=== PATIENT | male | born 1960 | race African-American/Black ===

== ENCOUNTER 2019-06-10 11:52 | Inpatient (IN) | payer OTHER ==
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
[2019-06-10] MEDS ORDERED: MENTHOL/PHENOL 1 EACH UD MM PRN (14:15)
[2019-06-10] MEDS ORDERED: chlordiazePOXIDE HCL 25 MG CAPSULE PO PRN (14:15)
[2019-06-10] MEDS ORDERED: ACETAMINOPHEN 325 MG TABLET (FP) PO PRN ×2 (14:15)
[2019-06-10] MEDS ORDERED: MAGNESIUM CITRATE 300 ML BOTTLE PO PRN (14:15)
[2019-06-10] MEDS ORDERED: hydrOXYzine PAMOATE 25 MG CAPSULE (FP) PO PRN (14:15)
[2019-06-10] MEDS ORDERED: MAGNESIUM HYDROX 2400MG/30ML ORAL SUSPENSION 30 ML CUP PO PRN (14:15)
[2019-06-10] MEDS ORDERED: METHOCARBAMOL 500 MG TABLET PO PRN (14:15)
[2019-06-10] MEDS ORDERED: MAG HYDROX/AL HYDROX/SIMETH 30 ML UNIT-DOSE CUP PO PRN (14:15)
[2019-06-10] MEDS ORDERED: BISMUTH SUBSALICYLATE 524 MG/30 ML UD PO PRN (14:15)
[2019-06-10 15:46] VITALS: BMI 20.7
[2019-06-10 17:28] LABS: HEMATOCRIT 40.7 % (35.4-49); HEMOGLOBIN 13.8 GM/dL (11.7-16.9); MCH 34.2 pg (25.7-33.7); MCHC 33.8 g/dl (32.0-35.9); MEAN PLT VOLUME 7.9 fl (7.5-11.1); PLATELET COUNT 358 K/MM3 (134-434); RBC 4.03 M/mm3 (4.00-5.60); RDW 13.8 % (11.9-15.9); WHITE BLOOD COUNT 7.5 K/mm3 (4.0-10.0)
[2019-06-10 17:46] LABS: ALBUMIN 3.6 g/dl (3.4-5.0); BILIRUBIN,TOTAL 0.5 mg/dL (0.2-1); BLOOD UREA NITROGEN 14.2 mg/dL (7-18); CALCIUM 8.7 mg/dL (8.5-10.1); CREATININE 0.9 mg/dL (0.55-1.3); POTASSIUM 4.1 mmol/L (3.5-5.1)
[2019-06-10] MEDS: NICOTINE 21 MG/24 HOURS TOPICAL PATCH TD SCH (17:53)
[2019-06-10] MEDS: chlordiazePOXIDE HCL 25 MG CAPSULE PO SCH ×3 (17:53→22:22)
[2019-06-10] MEDS: LATANOPROST 0.005% OPHTH SOLN 2.5ML BOTTLE OS SCH (22:21)
[2019-06-10] MEDS: THIAMINE HCL 100 MG TABLET (FP) PO SCH (22:22)
[2019-06-10] MEDS: MELATONIN 5 MG TABLETS PO PRN (22:23)
[2019-06-11] MEDS: chlordiazePOXIDE HCL 25 MG CAPSULE PO SCH ×4 (05:25→22:10)
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
[2019-06-11] MEDS: PRENATAL VITAMINS W/ FOLIC ACID TABLET (FP) PO SCH (10:55)
[2019-06-11] MEDS: NICOTINE 21 MG/24 HOURS TOPICAL PATCH TD SCH (10:55)
[2019-06-11] MEDS: PATIENT'S OWN MEDICATION (NON-FORMULARY) (Dorzolamide/Timolol/Pf [Cosopt Pf Eye Drops] 1 E OS SCH (10:56)
[2019-06-11] MEDS: BRIMONIDINE TARTRATE 0.2% OPHTHALMIC 5 ML BOTTLE OS SCH (10:56)
[2019-06-11] MEDS: IBUPROFEN 400 MG TABLET (FP) PO PRN (11:00)
--- NOTE | 2019-06-11 11:02 | PN ---
S CIWA - CIWA Score Nausea/Vomitin Muscle Tremors: 2 Anxiety: 2 Agitation: 2 Paroxysmal Sweats: No Perspiration Orientation: 0-Oriented Tacttile Disturbances: 1-Very Mild Itch/Numbness Auditory Disturbances: 0-None Visual Disturbances: 0-None Headache: 2-Mild CIWA-Ar Total Score: 11 S Progress Note (SOAP) Subjective: alert,irritable,anxious,interrupted sleep,tremor Objective: 06/11/19 11:01 Vital Signs Temperature 98.2 F 06/11/19 09:17 Pulse Rate 87 06/11/19 09:17 Respiratory Rate 18 06/11/19 09:17 Blood Pressure 107/57 L 06/11/19 09:17 O2 Sat by Pulse Oximetry (%) 06/11/19 11:01 06/10/19 06/10/19 14:30 14:30 WBC 7.5 RBC 4.03 Hgb 13.8 Hct 40.7 MCV 101.0 H MCHC 33.8 RDW 13.8 Plt Count 358 Sodium 139 Potassium 4.1 Chloride 106 Carbon Dioxide 28 Anion Gap 5 L BUN 14.2 Creatinine 0.9 06/11/19 11:01 other labs pending Assessment: 06/11/19 11:01 withdrawal symptom Plan: continue detox librium regimen
[2019-06-11] MEDS: TOLNAFTATE 1% CREAM 15 GM TUBE TP SCH ×2 (13:56→22:13)
[2019-06-11] MEDS: AMMONIUM LACTATE 12% LOTION 225 GM BOTTLE TP SCH ×2 (13:56→22:10)
[2019-06-11] MEDS: QUEtiapine FUMARATE 200 MG TABLET PO SCH (22:10)
[2019-06-11] MEDS: THIAMINE HCL 100 MG TABLET (FP) PO SCH (22:10)
[2019-06-11] MEDS: LATANOPROST 0.005% OPHTH SOLN 2.5ML BOTTLE OS SCH (22:13)
[2019-06-12] MEDS: chlordiazePOXIDE HCL 25 MG CAPSULE PO SCH ×4 (07:34→22:03)
[2019-06-12] MEDS: PRENATAL VITAMINS W/ FOLIC ACID TABLET (FP) PO SCH (10:04)
[2019-06-12] MEDS: NICOTINE 21 MG/24 HOURS TOPICAL PATCH TD SCH (10:04)
[2019-06-12] MEDS: TOLNAFTATE 1% CREAM 15 GM TUBE TP SCH ×2 (10:05→21:42)
[2019-06-12] MEDS: PATIENT'S OWN MEDICATION (NON-FORMULARY) (Dorzolamide/Timolol/Pf [Cosopt Pf Eye Drops] 1 E OS SCH (10:08)
[2019-06-12] MEDS: BRIMONIDINE TARTRATE 0.2% OPHTHALMIC 5 ML BOTTLE OS SCH (10:09)
[2019-06-12] MEDS: AMMONIUM LACTATE 12% LOTION 225 GM BOTTLE TP SCH ×2 (10:10→21:42)
--- NOTE | 2019-06-12 10:18 | PN ---
[facility] CIWA - CIWA Score Nausea/Vomitin-Mild Nausea/No Vomiting Muscle Tremors: 2 Anxiety: 2 Agitation: 2 Paroxysmal Sweats: No Perspiration Orientation: 0-Oriented Tacttile Disturbances: 1-Very Mild Itch/Numbness Auditory Disturbances: 0-None Visual Disturbances: 0-None Headache: 1-Very Mild CIWA-Ar Total Score: 9 S Progress Note (SOAP) Subjective: alert,irritable,anxious,interrupted sleep,tremor,pain in the body Objective: 06/12/19 10:17 Vital Signs Temperature 97.9 F 06/12/19 08:50 Pulse Rate 88 06/12/19 08:50 Respiratory Rate 18 06/12/19 08:50 Blood Pressure 97/65 06/12/19 08:50 O2 Sat by Pulse Oximetry (%) Laboratory Last Values WBC 7.5 K/mm3 (4.0-10.0) 06/10/19 14:30 RBC 4.03 M/mm3 (4.00-5.60) 06/10/19 14:30 Hgb 13.8 GM/dL (11.7-16.9) 06/10/19 14:30 Hct 40.7 % (35.4-49) 06/10/19 14:30 MCV 101.0 fl (80-96) H 06/10/19 14:30 MCH 34.2 pg (25.7-33.7) H 06/10/19 14:30 MCHC 33.8 g/dl (32.0-35.9) 06/10/19 14:30 RDW 13.8 % (11.9-15.9) 06/10/19 14:30 Plt Count 358 K/MM3 (134-434) 06/10/19 14:30 MPV 7.9 fl (7.5-11.1) 06/10/19 14:30 Sodium 139 mmol/L (136-145) 06/10/19 14:30 Potassium 4.1 mmol/L (3.5-5.1) 06/10/19 14:30 Chloride 106 mmol/L (98-107) 06/10/19 14:30 Carbon Dioxide 28 mmol/L (21-32) 06/10/19 14:30 Anion Gap 5 MMOL/L (8-16) L 06/10/19 14:30 BUN 14.2 mg/dL (7-18) 06/10/19 14:30 Creatinine 0.9 mg/dL (0.55-1.3) 06/10/19 14:30 Est GFR (CKD-EPI)AfAm 109.50 06/10/19 14:30 Est GFR (CKD-EPI)NonAf 94.48 06/10/19 14:30 Random Glucose 91 mg/dL (74-106) 06/10/19 14:30 Calcium 8.7 mg/dL (8.5-10.1) 06/10/19 14:30 Total Bilirubin 0.5 mg/dL (0.2-1) 06/10/19 14:30 AST 26 U/L (15-37) 06/10/19 14:30 ALT 39 U/L (13-61) 06/10/19 14:30 Alkaline Phosphatase 137 U/L (45-117) H 06/10/19 14:30 Total Protein 7.0 g/dl (6.4-8.2) 06/10/19 14:30 Albumin 3.6 g/dl (3.4-5.0) 06/10/19 14:30 RPR Titer Nonreactive (NONREACTIVE) 06/10/19 14:30 HIV 1&2 Ag/Ab, 4th Gen Non reactive (Non Reactive) 06/10/19 14:00 HIV 1&2 Antibody Screen Cancelled 06/11/19 07:45 HIV P24 Antigen Cancelled 06/11/19 07:45 Assessment: 06/12/19 10:18 withdrawal symptom Plan: continue detox librium regimen
[2019-06-12] MEDS: THIAMINE HCL 100 MG TABLET (FP) PO SCH (21:40)
[2019-06-12] MEDS: QUEtiapine FUMARATE 200 MG TABLET PO SCH (21:40)
[2019-06-12] MEDS: LATANOPROST 0.005% OPHTH SOLN 2.5ML BOTTLE OS SCH (21:42)
[2019-06-12] MEDS: IBUPROFEN 400 MG TABLET (FP) PO PRN (22:01)
[2019-06-13] MEDS ORDERED: chlordiazePOXIDE HCL 10 MG CAPSULE PO PRN
[2019-06-13] MEDS: chlordiazePOXIDE HCL 10 MG CAPSULE PO SCH ×4 (05:51→22:02)
[2019-06-13] MEDS: PRENATAL VITAMINS W/ FOLIC ACID TABLET (FP) PO SCH (11:13)
[2019-06-13] MEDS: NICOTINE 21 MG/24 HOURS TOPICAL PATCH TD SCH (11:13)
[2019-06-13] MEDS: AMMONIUM LACTATE 12% LOTION 225 GM BOTTLE TP SCH ×2 (11:14→22:00)
[2019-06-13] MEDS: TOLNAFTATE 1% CREAM 15 GM TUBE TP SCH ×2 (11:14→21:59)
[2019-06-13] MEDS: PATIENT'S OWN MEDICATION (NON-FORMULARY) (Dorzolamide/Timolol/Pf [Cosopt Pf Eye Drops] 1 E OS SCH (11:16)
[2019-06-13] MEDS: BRIMONIDINE TARTRATE 0.2% OPHTHALMIC 5 ML BOTTLE OS SCH (11:17)
--- NOTE | 2019-06-13 14:55 | PN ---
S CIWA - CIWA Score Nausea/Vomitin-Mild Nausea/No Vomiting Muscle Tremors: 2 Anxiety: 2 Agitation: 2 Paroxysmal Sweats: No Perspiration Orientation: 0-Oriented Tacttile Disturbances: 1-Very Mild Itch/Numbness Auditory Disturbances: 0-None Visual Disturbances: 1-Very Mild Sensitivity Headache: 1-Very Mild CIWA-Ar Total Score: 10 BHS Progress Note (SOAP) Subjective: alert,irritable,interrupted sleep,pain in the body Objective: 06/13/19 14:54 Vital Signs Temperature 97.2 F L 06/13/19 13:30 Pulse Rate 97 H 06/13/19 13:30 Respiratory Rate 16 06/13/19 13:30 Blood Pressure 110/72 06/13/19 13:30 O2 Sat by Pulse Oximetry (%) Assessment: 06/13/19 14:54 withdrawal symptom Plan: continue detox librium regimen,ensure plus 120 mls po bid
[2019-06-13] MEDS: IBUPROFEN 400 MG TABLET (FP) PO PRN (17:44)
[2019-06-13] MEDS: LATANOPROST 0.005% OPHTH SOLN 2.5ML BOTTLE OS SCH (21:59)
[2019-06-13] MEDS: THIAMINE HCL 100 MG TABLET (FP) PO SCH (21:59)
[2019-06-13] MEDS: MELATONIN 5 MG TABLETS PO PRN (22:00)
[2019-06-13] MEDS: QUEtiapine FUMARATE 200 MG TABLET PO SCH (22:00)
[2019-06-14] MEDS: chlordiazePOXIDE HCL 10 MG CAPSULE PO SCH ×2 (05:45→17:33)
[2019-06-14] MEDS: TOLNAFTATE 1% CREAM 15 GM TUBE TP SCH ×2 (11:05→22:03)
[2019-06-14] MEDS: NICOTINE 21 MG/24 HOURS TOPICAL PATCH TD SCH (11:05)
[2019-06-14] MEDS: PRENATAL VITAMINS W/ FOLIC ACID TABLET (FP) PO SCH (11:06)
[2019-06-14] MEDS: AMMONIUM LACTATE 12% LOTION 225 GM BOTTLE TP SCH ×2 (11:06→22:03)
[2019-06-14] MEDS: PATIENT'S OWN MEDICATION (NON-FORMULARY) (Dorzolamide/Timolol/Pf [Cosopt Pf Eye Drops] 1 E OS SCH (11:06)
[2019-06-14] MEDS: BRIMONIDINE TARTRATE 0.2% OPHTHALMIC 5 ML BOTTLE OS SCH (11:06)
--- NOTE | 2019-06-14 12:37 | DS ---
[facility] Detox Discharge Summary Admission Date: 06/10/19 Discharge Date: 06/14/19 - History Present History: Alcohol Dependence Pertinent Past History: Pt completed alcohol detox protocol. Pt to go to [facility] rehab today. Without complaints. Vital Signs - 24 hr 06/13/19 06/13/19 06/14/19 13:30 20:32 00:32 Temperature 97.2 F L 97.0 F L Pulse Rate 97 H 88 Respiratory 16 18 16 Rate Blood Pressure 110/72 125/72 06/14/19 06/14/19 06/14/19 03:49 07:22 08:57 Temperature 97.5 F L 97.2 F L Pulse Rate 84 91 H Respiratory 18 18 18 Rate Blood Pressure 96/61 126/86 Laboratory Tests 06/10/19 06/10/19 06/10/19 14:00 14:30 14:30 WBC 7.5 RBC 4.03 Hgb 13.8 Hct 40.7 MCV 101.0 H MCH 34.2 H MCHC 33.8 RDW 13.8 Plt Count 358 MPV 7.9 Sodium 139 Potassium 4.1 Chloride 106 Carbon Dioxide 28 Anion Gap 5 L BUN 14.2 Creatinine 0.9 Est GFR (CKD-EPI)AfAm 109.50 Est GFR (CKD-EPI)NonAf 94.48 Random Glucose 91 Calcium 8.7 Total Bilirubin 0.5 AST 26 ALT 39 Alkaline Phosphatase 137 H Total Protein 7.0 Albumin 3.6 RPR Titer HIV 1&2 Ag/Ab, 4th Gen Non reactive HIV 1&2 Antibody Screen HIV P24 Antigen 06/10/19 06/11/19 14:30 07:45 WBC RBC Hgb Hct MCV MCH MCHC RDW Plt Count MPV Sodium Potassium Chloride Carbon Dioxide Anion Gap BUN Creatinine Est GFR (CKD-EPI)AfAm Est GFR (CKD-EPI)NonAf Random Glucose Calcium Total Bilirubin AST ALT Alkaline Phosphatase Total Protein Albumin RPR Titer Nonreactive HIV 1&2 Ag/Ab, 4th Gen HIV 1&2 Antibody Screen Cancelled HIV P24 Antigen Cancelled - Physical Exam Results Vital Signs: Vital Signs Temperature 97.2 F L 06/14/19 08:57 Pulse Rate 91 H 06/14/19 08:57 Respiratory Rate 18 06/14/19 08:57 Blood Pressure 126/86 06/14/19 08:57 O2 Sat by Pulse Oximetry (%) - Treatment Hospital Course: Detox Protocol Followed, Detoxed Safely - Medication Discharge Medications: Ambulatory Orders Brimonidine Tartrate [Alphagan 0.2% -] 1 drop OS DAILY 06/10/19 Dorzolamide/Timolol/Pf [Cosopt Pf Eye Drops] 1 each OS DAILY 06/10/19 Ibuprofen [Motrin -] 400 mg PO BID PRN 06/10/19 Latanoprost 0.005% Eye Drops [Xalatan 0.005% Eye Drops -] 1 drop OS HS 06/10/19 Quetiapine Fumarate [Seroquel -] 100 mg PO DAILY 06/10/19 Quetiapine Fumarate [Seroquel -] 200 mg PO HS 06/10/19 - AMA Did Patient Leave Against Medical Advice: No
[2019-06-14] MEDS: IBUPROFEN 400 MG TABLET (FP) PO PRN (18:12)
[2019-06-14] MEDS: QUEtiapine FUMARATE 200 MG TABLET PO SCH (22:03)
[2019-06-14] MEDS: THIAMINE HCL 100 MG TABLET (FP) PO SCH (22:04)
[2019-06-14] MEDS: LATANOPROST 0.005% OPHTH SOLN 2.5ML BOTTLE OS SCH (22:04)
[2019-06-15] MEDS ORDERED: chlordiazePOXIDE HCL 10 MG CAPSULE PO ONE (05:00)
[2019-06-15] MEDS: BRIMONIDINE TARTRATE 0.2% OPHTHALMIC 5 ML BOTTLE OS SCH (11:08)
[2019-06-15] MEDS: PATIENT'S OWN MEDICATION (NON-FORMULARY) (Dorzolamide/Timolol/Pf [Cosopt Pf Eye Drops] 1 E OS SCH (11:08)
[2019-06-15] MEDS: PRENATAL VITAMINS W/ FOLIC ACID TABLET (FP) PO SCH (11:09)
[2019-06-15] MEDS: TOLNAFTATE 1% CREAM 15 GM TUBE TP SCH ×2 (11:09→23:55)
[2019-06-15] MEDS: AMMONIUM LACTATE 12% LOTION 225 GM BOTTLE TP SCH ×2 (11:09→23:56)
[2019-06-15] MEDS: NICOTINE 21 MG/24 HOURS TOPICAL PATCH TD SCH (11:09)
--- NOTE | 2019-06-15 11:38 | DS ---
[facility] Detox Discharge Summary Admission Date: 06/10/19 Discharge Date: 06/15/19 - History Present History: Alcohol Dependence Pertinent Past History: Pt to be discharged today to rehab here. Completed detox for AUD. Pt did not have any problems during hospitalization Vital Signs - 24 hr 06/14/19 06/14/19 06/14/19 13:15 16:46 20:35 Temperature 98.4 F 96.8 F L 98.2 F Pulse Rate 102 H 95 H 91 H Respiratory 16 17 17 Rate Blood Pressure 123/76 122/68 127/74 06/15/19 06/15/19 06/15/19 00:42 04:30 05:42 Temperature 97.7 F Pulse Rate 81 Respiratory 18 18 17 Rate Blood Pressure 120/68 06/15/19 09:44 Temperature Pulse Rate Respiratory 15 Rate Blood Pressure Laboratory Tests 06/10/19 06/10/19 06/10/19 14:00 14:30 14:30 WBC 7.5 RBC 4.03 Hgb 13.8 Hct 40.7 MCV 101.0 H MCH 34.2 H MCHC 33.8 RDW 13.8 Plt Count 358 MPV 7.9 Sodium 139 Potassium 4.1 Chloride 106 Carbon Dioxide 28 Anion Gap 5 L BUN 14.2 Creatinine 0.9 Est GFR (CKD-EPI)AfAm 109.50 Est GFR (CKD-EPI)NonAf 94.48 Random Glucose 91 Calcium 8.7 Total Bilirubin 0.5 AST 26 ALT 39 Alkaline Phosphatase 137 H Total Protein 7.0 Albumin 3.6 RPR Titer HIV 1&2 Ag/Ab, 4th Gen Non reactive HIV 1&2 Antibody Screen HIV P24 Antigen 06/10/19 06/11/19 14:30 07:45 WBC RBC Hgb Hct MCV MCH MCHC RDW Plt Count MPV Sodium Potassium Chloride Carbon Dioxide Anion Gap BUN Creatinine Est GFR (CKD-EPI)AfAm Est GFR (CKD-EPI)NonAf Random Glucose Calcium Total Bilirubin AST ALT Alkaline Phosphatase Total Protein Albumin RPR Titer Nonreactive HIV 1&2 Ag/Ab, 4th Gen HIV 1&2 Antibody Screen Cancelled HIV P24 Antigen Cancelled - Physical Exam Results Vital Signs: Vital Signs Temperature 97.7 F 06/15/19 05:42 Pulse Rate 81 06/15/19 05:42 Respiratory Rate 15 06/15/19 09:44 Blood Pressure 120/68 06/15/19 05:42 O2 Sat by Pulse Oximetry (%) - Treatment Hospital Course: Detox Protocol Followed, Detoxed Safely, Responded well, Discharged Condition Good, Rehab Referral Accepted - Medication Discharge Medications: Ambulatory Orders Brimonidine Tartrate [Alphagan 0.2% -] 1 drop OS DAILY 06/10/19 Dorzolamide/Timolol/Pf [Cosopt Pf Eye Drops] 1 each OS DAILY 06/10/19 Ibuprofen [Motrin -] 400 mg PO BID PRN 06/10/19 Latanoprost 0.005% Eye Drops [Xalatan 0.005% Eye Drops -] 1 drop OS HS 06/10/19 Quetiapine Fumarate [Seroquel -] 100 mg PO DAILY 06/10/19 Quetiapine Fumarate [Seroquel -] 200 mg PO HS 06/10/19
[2019-06-15] MEDS: QUEtiapine FUMARATE 200 MG TABLET PO SCH (23:54)
[2019-06-15] MEDS: THIAMINE HCL 100 MG TABLET (FP) PO SCH (23:55)
[2019-06-15] MEDS: LATANOPROST 0.005% OPHTH SOLN 2.5ML BOTTLE OS SCH (23:55)
[2019-06-15] MEDS: IBUPROFEN 400 MG TABLET (FP) PO PRN (23:59)
[2019-06-16] MEDS: AMMONIUM LACTATE 12% LOTION 225 GM BOTTLE TP SCH (11:25)
[2019-06-16] MEDS: BRIMONIDINE TARTRATE 0.2% OPHTHALMIC 5 ML BOTTLE OS SCH (11:25)
[2019-06-16] MEDS: TOLNAFTATE 1% CREAM 15 GM TUBE TP SCH (11:25)
[2019-06-16] MEDS: PATIENT'S OWN MEDICATION (NON-FORMULARY) (Dorzolamide/Timolol/Pf [Cosopt Pf Eye Drops] 1 E OS SCH (11:25)
[2019-06-16] MEDS: PRENATAL VITAMINS W/ FOLIC ACID TABLET (FP) PO SCH (11:25)
[2019-06-16] MEDS: NICOTINE 21 MG/24 HOURS TOPICAL PATCH TD SCH (11:25)
--- NOTE | 2019-06-16 12:36 | PN ---
S Progress Note Note: Patient completed detox. Awaiting to be transferred to [address] He denies medical complaints, SI/HI. PE alert and oriented x 3 skin warm and dry +perrla, eoms intact bl ext full rom, amb ad becky no tremors A/P: Alcohol dependence For transfer to Rehab
[2019-06-16 14:45] VITALS: BP 120/77; PULSE 105; TEMP 99
== END 2019-06-16 15:53 | disposition other institution (70) | DRG 774 ==
LOC: YASAS 11:52 → Y6N 16:13
PROVIDERS: ADMIT Allergy & Immunology; ATTEND Allergy & Immunology
PROC: HZ2ZZZZ Detoxification Services for Substance Abuse Treatment (ICD-10-PCS; principal; 2019-06-10)
DX: F10.230 Alcohol dependence with withdrawal, uncomplicated (principal); F14.20 Cocaine dependence, uncomplicated; F17.210 Nicotine dependence, cigarettes, uncomplicated; F12.20 Cannabis dependence, uncomplicated; F25.9 Schizoaffective disorder, unspecified; F19.282 Other psychoactive substance dependence with psychoactive substance-induced sleep disorder; F19.24 Other psychoactive substance dependence with psychoactive substance-induced mood disorder; G43.909 Migraine, unspecified, not intractable, without status migrainosus; H40.9 Unspecified glaucoma
CPT/HCPCS: 36415; 80053; 85027; 86593; 87389

== ENCOUNTER 2019-06-16 16:02 | Inpatient (IN) | payer OTHER ==
--- NOTE | 2019-06-16 17:40 | HP ---
[facility] Rehab Assess/Revision - Admission History Admitted to Rehab from: [facility] Date of Admission to Rehab: 06/16/19 - Findings Detox History & Physical reviewed: Yes Concur with findings: Yes Comments/Additional Findings: pt with glaucoma Inpatient Rehab Admission - Rehab Decision to Admit Inpatient rehab admission?: Yes - Initial Determination Are CD services needed?: Yes Free of communicable disease: Yes Not in need of hospitalization: Yes - Rehab Admission Criteria Previous failed treatment: Yes Poor recovery environment: Yes Comorbidities: Yes Lacks judgement: Yes Patient is meeting Inpatient Rehab admission criteria:: Yes (completed detox)
[2019-06-16] MEDS ORDERED: LOPERAMIDE HCL 2 MG CAPSULE PO PRN (17:45)
[2019-06-16] MEDS ORDERED: MAGNESIUM HYDROX 2400MG/30ML ORAL SUSPENSION 30 ML CUP PO PRN (17:45)
[2019-06-16] MEDS ORDERED: guaiFENesin 200 MG/10 ML 10 ML UNIT-DOSE CUPS PO PRN (17:45)
[2019-06-16] MEDS ORDERED: IBUPROFEN 400 MG TABLET (FP) PO PRN (17:45)
[2019-06-16] MEDS ORDERED: MAG HYDROX/AL HYDROX/SIMETH 30 ML UNIT-DOSE CUP PO PRN (17:45)
[2019-06-16] MEDS ORDERED: MENTHOL/PHENOL 1 EACH UD MM PRN (17:45)
[2019-06-16] MEDS ORDERED: hydrOXYzine PAMOATE 25 MG CAPSULE (FP) PO PRN (17:45)
[2019-06-16] MEDS ORDERED: MAGNESIUM CITRATE 300 ML BOTTLE PO PRN (17:45)
[2019-06-16] MEDS ORDERED: P-EPHED 60MG/TRIPROLIDI 2.5MG TABLET PO PRN (17:45)
[2019-06-16] MEDS ORDERED: ACETAMINOPHEN 325 MG TABLET (FP) PO PRN (17:45)
[2019-06-16] MEDS: LATANOPROST 0.005% OPHTH SOLN 2.5ML BOTTLE OS SCH (21:44)
[2019-06-16] MEDS: THIAMINE HCL 100 MG TABLET (FP) PO SCH (21:45)
[2019-06-16] MEDS: PATIENT'S OWN MEDICATION (NON-FORMULARY) (Dorzolamide/Timolol/Pf [Cosopt Pf Eye Drops] 1 E OS SCH (21:45)
[2019-06-16] MEDS ORDERED: MELATONIN 5 MG TABLETS PO PRN (22:00)
[2019-06-16] MEDS ORDERED: TIMOLOL 0.5% OPHTHALMIC SOL 5 ML BOTTLE OS SCH (22:00)
[2019-06-17] MEDS: PRENATAL VITAMINS W/ FOLIC ACID TABLET (FP) PO SCH (09:54)
[2019-06-17] MEDS: PATIENT'S OWN MEDICATION (NON-FORMULARY) (Dorzolamide/Timolol/Pf [Cosopt Pf Eye Drops] 1 E OS SCH ×2 (09:55→22:02)
[2019-06-17] MEDS ORDERED: QUEtiapine FUMARATE 200 MG TABLET PO SCH (10:00)
--- NOTE | 2019-06-17 11:09 | PN ---
[facility] Progress Note Note: Pt is a 59 y/o male with a hx of LEI-alcohol,cocaine,marijuana(sporadic) admitted to rehab after completing detox on . PMHx:Glaucoma(on Xalatan, Cosopt and Alphagan eye drops-poor historian and unable to give information on dosing frequency, was taking in detox),marijuana. Psy Hx:Schizoaffective Disorder,MDD. Pt reports he has Dr. Elaine Sommer at [facility] on [address] Vital Signs - 24 hr 06/16/19 06/17/19 06/17/19 16:50 00:35 06:45 Temperature 98.6 F 97.4 F L Pulse Rate 106 H 80 Respiratory 18 18 18 Rate Blood Pressure 105/68 125/76 Alert o x 3,denies s/h/i nad oob ambulating with steady gait. extremities/skin:no edema;dry scaly,feet/hands; skin intact. A/P s/p detox LEI Tinea Pedis Dry skin Maintain safety Tinactin cream as directed Ammonium Lactate lotion apply daily to affected areas. increase po fluids follow up with counselor for discharge planning referral after rehab.
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
[2019-06-17] MEDS: AMMONIUM LACTATE 12% LOTION 225 GM BOTTLE TP SCH (15:24)
[2019-06-17] MEDS: BRIMONIDINE TARTRATE 0.2% OPHTHALMIC 5 ML BOTTLE OS SCH ×2 (15:24→21:20)
[2019-06-17] MEDS: QUEtiapine FUMARATE 100 MG TABLET (FP) PO SCH (15:25)
[2019-06-17] MEDS: THIAMINE HCL 100 MG TABLET (FP) PO SCH (21:21)
[2019-06-17] MEDS: QUEtiapine FUMARATE 200 MG TABLET PO SCH (21:21)
[2019-06-17] MEDS: LATANOPROST 0.005% OPHTH SOLN 2.5ML BOTTLE OS SCH (21:23)
[2019-06-17] MEDS: TOLNAFTATE 1% CREAM 15 GM TUBE TP SCH (22:02)
[2019-06-18] MEDS: BRIMONIDINE TARTRATE 0.2% OPHTHALMIC 5 ML BOTTLE OS SCH ×3 (06:52→21:17)
[2019-06-18 07:16] VITALS: TEMP 97.7
[2019-06-18] MEDS: AMMONIUM LACTATE 12% LOTION 225 GM BOTTLE TP SCH (10:17)
[2019-06-18] MEDS: PATIENT'S OWN MEDICATION (NON-FORMULARY) (Dorzolamide/Timolol/Pf [Cosopt Pf Eye Drops] 1 E OS SCH ×2 (10:17→21:51)
[2019-06-18] MEDS: PRENATAL VITAMINS W/ FOLIC ACID TABLET (FP) PO SCH (10:17)
[2019-06-18] MEDS: QUEtiapine FUMARATE 100 MG TABLET (FP) PO SCH (10:18)
[2019-06-18] MEDS: TOLNAFTATE 1% CREAM 15 GM TUBE TP SCH ×2 (10:18→21:51)
[2019-06-18] MEDS: THIAMINE HCL 100 MG TABLET (FP) PO SCH (21:16)
[2019-06-18] MEDS: QUEtiapine FUMARATE 200 MG TABLET PO SCH (21:16)
[2019-06-18] MEDS: LATANOPROST 0.005% OPHTH SOLN 2.5ML BOTTLE OS SCH (21:18)
[2019-06-19] MEDS: BRIMONIDINE TARTRATE 0.2% OPHTHALMIC 5 ML BOTTLE OS SCH ×3 (06:52→21:15)
[2019-06-19 06:55] VITALS: BP 104/63; PULSE 87
[2019-06-19] MEDS: AMMONIUM LACTATE 12% LOTION 225 GM BOTTLE TP SCH (10:20)
[2019-06-19] MEDS: PATIENT'S OWN MEDICATION (NON-FORMULARY) (Dorzolamide/Timolol/Pf [Cosopt Pf Eye Drops] 1 E OS SCH ×2 (10:21→21:15)
[2019-06-19] MEDS: QUEtiapine FUMARATE 100 MG TABLET (FP) PO SCH (10:22)
[2019-06-19] MEDS: TOLNAFTATE 1% CREAM 15 GM TUBE TP SCH ×2 (10:22→21:16)
[2019-06-19] MEDS: PRENATAL VITAMINS W/ FOLIC ACID TABLET (FP) PO SCH (10:22)
[2019-06-19] MEDS: LATANOPROST 0.005% OPHTH SOLN 2.5ML BOTTLE OS SCH (21:15)
[2019-06-19] MEDS: QUEtiapine FUMARATE 200 MG TABLET PO SCH (21:16)
[2019-06-19] MEDS: THIAMINE HCL 100 MG TABLET (FP) PO SCH (21:16)
[2019-06-20] MEDS: BRIMONIDINE TARTRATE 0.2% OPHTHALMIC 5 ML BOTTLE OS SCH ×2 (07:59→14:22)
[2019-06-20] MEDS: QUEtiapine FUMARATE 100 MG TABLET (FP) PO SCH (10:09)
[2019-06-20] MEDS: TOLNAFTATE 1% CREAM 15 GM TUBE TP SCH (10:10)
[2019-06-20] MEDS: PRENATAL VITAMINS W/ FOLIC ACID TABLET (FP) PO SCH (10:10)
[2019-06-20] MEDS: AMMONIUM LACTATE 12% LOTION 225 GM BOTTLE TP SCH (10:10)
[2019-06-20] MEDS: PATIENT'S OWN MEDICATION (NON-FORMULARY) (Dorzolamide/Timolol/Pf [Cosopt Pf Eye Drops] 1 E OS SCH (10:13)
--- NOTE | 2019-06-20 15:34 | DS ---
[facility] Rehab Discharge Summary - [facility] Rehab Discharge Summary Admission Date: 06/16/19 Discharge Date: 06/20/19 - History Present History: Alcohol dependence, Cannabis dependence, Cocaine dependence Additional Comments: Pt is a 59 y/o male with a hx of LEI admitted to rehab after completing detox treatment but declined to continue with rehab("I feel locked in here") and wants to follow up with his outpatient program -[facility] on [address] [place] [address]. Pt reports he has own primary care provider, Dr. Elaine Sommer at [place], [place]. Pertinent Past History: Glaucoma Migraines Schizo-affective d/o - Discharge Physical Exam Vital Signs: Vital Signs Temperature 97.7 F 06/19/19 06:53 Pulse Rate 87 06/19/19 06:53 Respiratory Rate 16 06/20/19 03:30 Blood Pressure 104/63 06/19/19 06:53 O2 Sat by Pulse Oximetry (%) Alert o x 3,denies s/h/i nad oob ambulating with steady gait cardiac:s1 s2,rrr lungs:cta,manish. abdomen:+bs,soft,nt,nd extremities/skin:no edema;skin intact. Pertinent Admission Physical Exam Findings: Stable and unchanged since admission to rehab - Treatment Discharge Condition: Discharge condition good Hospital Course: safety maintained CD aftercare referral accepted to [facility] program - Medication Discharge Medications: Ambulatory Orders Brimonidine Tartrate [Alphagan 0.2% -] 1 drop OS TID 06/10/19 Dorzolamide/Timolol/Pf [Cosopt Pf Eye Drops] 1 each OS BID 06/10/19 Ibuprofen [Motrin -] 400 mg PO BID PRN 06/10/19 Latanoprost 0.005% Eye Drops [Xalatan 0.005% Eye Drops -] 1 drop OS HS 06/10/19 Quetiapine Fumarate [Seroquel -] 100 mg PO DAILY 06/10/19 Quetiapine Fumarate [Seroquel -] 200 mg PO HS 06/10/19 - Medication-Assisted Treatment (MAT) Medication-Assisted Treatment (MAT): Yes - Discharge Instructions Diet, activity, other medical instructions: Diet:Regular Activity: oob ad becky Other medical instructions:follow up with CD aftercare as scheduled. follow up with primary care provider Dr. Elaine Sommer at [place], [place] - Diagnosis (1) Alcohol dependence Current Visit: Yes Status: Chronic Qualifiers: Substance use status: uncomplicated Qualified Code(s): F10.20 - Alcohol dependence, uncomplicated (2) Cocaine dependence Current Visit: Yes Status: Chronic Qualifiers: Substance use status: uncomplicated Qualified Code(s): F14.20 - Cocaine dependence, uncomplicated (3) Glaucoma Current Visit: Yes Status: Chronic Qualifiers: Laterality: bilateral (4) Migraine Current Visit: Yes Status: Chronic (5) Nicotine dependence Current Visit: Yes Status: Chronic Qualifiers: Nicotine product type: cigarettes Substance use status: uncomplicated Qualified Code(s): F17.210 - Nicotine dependence, cigarettes, uncomplicated - Follow-up Referral Minutes to complete discharge: 20 - AMA Did Patient Leave Against Medical Advice: No Additional Comments: Pt has own eye drops and will follow up with his primary care provider upon discharge.
== END 2019-06-20 04:35 | disposition home or self-care (01) | DRG 772 ==
LOC: YASAS 16:02 → Y5N 16:03
PROVIDERS: ADMIT Allergy & Immunology; ATTEND Allergy & Immunology
PROC: HZ42ZZZ Group Counseling for Substance Abuse Treatment, Cognitive-Behavioral (ICD-10-PCS; principal; 2019-06-16)
DX: F10.20 Alcohol dependence, uncomplicated (principal); F14.20 Cocaine dependence, uncomplicated; F12.20 Cannabis dependence, uncomplicated; F33.2 Major depressive disorder, recurrent severe without psychotic features; F19.282 Other psychoactive substance dependence with psychoactive substance-induced sleep disorder; F25.9 Schizoaffective disorder, unspecified; G43.909 Migraine, unspecified, not intractable, without status migrainosus; H40.9 Unspecified glaucoma; L85.3 Xerosis cutis; B35.3 Tinea pedis

== ENCOUNTER 2021-08-25 12:25 | Inpatient (IN) | payer OTHER ==
[2021-08-25] MEDS ORDERED: MAGNESIUM CITRATE 300 ML BOTTLE PO PRN (13:00)
[2021-08-25] MEDS ORDERED: MAG HYDROX/AL HYDROX/SIMETH 30 ML UNIT-DOSE CUP PO PRN (13:00)
[2021-08-25] MEDS ORDERED: NICOTINE 10 MG CARTRIDGE (INHALER) IH PRN (13:00)
[2021-08-25] MEDS ORDERED: DICYCLOMINE HCL 10 MG CAPSULE PO PRN (13:00)
[2021-08-25] MEDS ORDERED: ACETAMINOPHEN 325 MG TABLET (FP) PO PRN ×2 (13:00)
[2021-08-25] MEDS ORDERED: LOPERAMIDE HCL 2 MG CAPSULE PO PRN (13:00)
[2021-08-25] MEDS ORDERED: BISMUTH SUBSALICYLATE 262 MG/15 ML BTL PO PRN (13:00)
[2021-08-25] MEDS ORDERED: MAGNESIUM HYDROX 2400MG/30ML ORAL SUSPENSION 30 ML CUP PO PRN (13:00)
[2021-08-25] MEDS ORDERED: chlordiazePOXIDE HCL 25 MG CAPSULE PO PRN (13:00)
[2021-08-25] MEDS ORDERED: BENZOCAINE/MENTHOL (CHLORASEPTIC ) LOZENGE MM PRN (13:00)
[2021-08-25] MEDS ORDERED: ONDANSETRON *ODT* 4 MG TABLET SL PRN (13:00)
[2021-08-25 13:49] VITALS: BMI 22.9
[2021-08-25 17:14] LABS: HEMATOCRIT 43.4 % (35.4-49); HEMOGLOBIN 14.6 GM/dL (11.7-16.9); MCH 32.4 pg (25.7-33.7); MCHC 33.6 g/dl (32.0-35.9); MEAN CELL VOLUME 96.5 fl (80-96); MEAN PLT VOLUME 7.9 fl (7.5-11.1); PLATELET COUNT 337 10^3/uL (134-434); RDW 13.5 % (11.9-15.9); WHITE BLOOD COUNT 6.3 K/mm3 (4.0-10.0)
[2021-08-25 17:46] LABS: CALCIUM 9.5 mg/dL (8.5-10.1)
[2021-08-25 17:47] LABS: BLOOD UREA NITROGEN 15.2 mg/dL (7-18)
[2021-08-25 17:51] LABS: BILIRUBIN,TOTAL 0.5 mg/dL (0.2-1); TOT PROT 7.8 g/dl (6.4-8.2)
[2021-08-25] MEDS: chlordiazePOXIDE HCL 25 MG CAPSULE PO SCH ×2 (17:51→22:44)
[2021-08-25] MEDS: NICOTINE 14 MG/24 HOURS TOPICAL PATCH TD SCH (17:52)
[2021-08-25] MEDS: PRENATAL VITAMINS W/ FOLIC ACID TABLET (FP) PO SCH (17:52)
[2021-08-25] MEDS: hydrOXYzine PAMOATE 25 MG CAPSULE (FP) PO SCH ×2 (17:53→22:43)
[2021-08-25] MEDS: IBUPROFEN 400 MG TABLET (FP) PO PRN (17:58)
[2021-08-25] MEDS: THIAMINE HCL 100 MG TABLET (FP) PO SCH (22:43)
[2021-08-25] MEDS: MELATONIN 5 MG TABLETS PO SCH (22:45)
[2021-08-26] MEDS: chlordiazePOXIDE HCL 25 MG CAPSULE PO SCH ×4 (05:48→23:39)
[2021-08-26] MEDS: PRENATAL VITAMINS W/ FOLIC ACID TABLET (FP) PO SCH (10:51)
[2021-08-26] MEDS: hydrOXYzine PAMOATE 25 MG CAPSULE (FP) PO SCH ×4 (10:53→22:13)
[2021-08-26] MEDS: NICOTINE 14 MG/24 HOURS TOPICAL PATCH TD SCH (10:53)
[2021-08-26] MEDS: DORZOLAMIDE 2% HCL OPHTHALMIC SOLUTION 10 ML BOTTLE OS SCH ×2 (14:16→22:10)
[2021-08-26] MEDS: BRIMONIDINE TARTRATE 0.2% OPHTHALMIC 5 ML BOTTLE OS SCH ×2 (14:16→23:41)
[2021-08-26] MEDS: TIMOLOL 0.5% OPHTHALMIC SOL 5 ML BOTTLE OS SCH (15:46)
[2021-08-26] MEDS ORDERED: PATIENT'S OWN MEDICATION (NON-FORMULARY) (Dorzolamide/Timolol/Pf [Cosopt Pf Eye Drops] 1 E OS SCH (22:00)
[2021-08-26] MEDS: QUEtiapine FUMARATE 200 MG TABLET PO SCH (22:12)
[2021-08-26] MEDS: THIAMINE HCL 100 MG TABLET (FP) PO SCH (22:13)
[2021-08-26] MEDS: MELATONIN 5 MG TABLETS PO SCH (23:39)
[2021-08-27] MEDS: TIMOLOL 0.5% OPHTHALMIC SOL 5 ML BOTTLE OS SCH ×3 (00:35→23:10)
[2021-08-27] MEDS: LATANOPROST 0.005% OPHTH SOLN 2.5ML BOTTLE OS SCH ×2 (00:36→23:10)
[2021-08-27] MEDS: chlordiazePOXIDE HCL 25 MG CAPSULE PO SCH ×4 (05:07→23:09)
[2021-08-27] MEDS: BRIMONIDINE TARTRATE 0.2% OPHTHALMIC 5 ML BOTTLE OS SCH ×3 (05:09→23:09)
[2021-08-27] MEDS: hydrOXYzine PAMOATE 25 MG CAPSULE (FP) PO SCH ×5 (05:11→23:10)
[2021-08-27] MEDS: NICOTINE 14 MG/24 HOURS TOPICAL PATCH TD SCH (10:56)
[2021-08-27] MEDS: PRENATAL VITAMINS W/ FOLIC ACID TABLET (FP) PO SCH (10:56)
[2021-08-27] MEDS: IBUPROFEN 400 MG TABLET (FP) PO PRN ×2 (10:57→22:10)
[2021-08-27] MEDS: DORZOLAMIDE 2% HCL OPHTHALMIC SOLUTION 10 ML BOTTLE OS SCH ×2 (11:09→23:10)
[2021-08-27 14:09] LABS: SARS-CoV-2 NAA Not Detected (Not Detected)
[2021-08-27] MEDS: QUEtiapine FUMARATE 200 MG TABLET PO SCH (22:09)
[2021-08-27] MEDS: THIAMINE HCL 100 MG TABLET (FP) PO SCH (22:09)
[2021-08-27] MEDS: MELATONIN 5 MG TABLETS PO SCH (22:09)
[2021-08-28] MEDS ORDERED: chlordiazePOXIDE HCL 10 MG CAPSULE PO PRN
[2021-08-28] MEDS: hydrOXYzine PAMOATE 25 MG CAPSULE (FP) PO SCH ×3 (00:43→10:08)
[2021-08-28] MEDS: chlordiazePOXIDE HCL 10 MG CAPSULE PO SCH ×4 (05:53→22:12)
[2021-08-28] MEDS: BRIMONIDINE TARTRATE 0.2% OPHTHALMIC 5 ML BOTTLE OS SCH ×3 (05:53→22:13)
[2021-08-28] MEDS: NICOTINE 14 MG/24 HOURS TOPICAL PATCH TD SCH (10:07)
[2021-08-28] MEDS: PRENATAL VITAMINS W/ FOLIC ACID TABLET (FP) PO SCH (10:07)
[2021-08-28] MEDS: TIMOLOL 0.5% OPHTHALMIC SOL 5 ML BOTTLE OS SCH ×2 (10:07→22:14)
[2021-08-28] MEDS: DORZOLAMIDE 2% HCL OPHTHALMIC SOLUTION 10 ML BOTTLE OS SCH ×2 (10:08→22:13)
[2021-08-28] MEDS: METHOCARBAMOL 500 MG TABLET PO PRN (10:09)
[2021-08-28] MEDS: THIAMINE HCL 100 MG TABLET (FP) PO SCH (22:12)
[2021-08-28] MEDS: hydrOXYzine PAMOATE 25 MG CAPSULE (FP) PO PRN (22:12)
[2021-08-28] MEDS: MELATONIN 5 MG TABLETS PO SCH (22:13)
[2021-08-28] MEDS: QUEtiapine FUMARATE 200 MG TABLET PO SCH (22:13)
[2021-08-28] MEDS: LATANOPROST 0.005% OPHTH SOLN 2.5ML BOTTLE OS SCH (22:14)
[2021-08-28] MEDS: IBUPROFEN 400 MG TABLET (FP) PO PRN (22:18)
[2021-08-29] MEDS: chlordiazePOXIDE HCL 10 MG CAPSULE PO SCH ×2 (05:30→18:05)
[2021-08-29] MEDS: BRIMONIDINE TARTRATE 0.2% OPHTHALMIC 5 ML BOTTLE OS SCH ×3 (05:30→22:52)
[2021-08-29] MEDS: hydrOXYzine PAMOATE 25 MG CAPSULE (FP) PO PRN (05:31)
[2021-08-29] MEDS: PRENATAL VITAMINS W/ FOLIC ACID TABLET (FP) PO SCH (10:29)
[2021-08-29] MEDS: NICOTINE 14 MG/24 HOURS TOPICAL PATCH TD SCH (10:29)
[2021-08-29] MEDS: TIMOLOL 0.5% OPHTHALMIC SOL 5 ML BOTTLE OS SCH ×2 (10:29→22:53)
[2021-08-29] MEDS: DORZOLAMIDE 2% HCL OPHTHALMIC SOLUTION 10 ML BOTTLE OS SCH ×2 (10:29→22:53)
[2021-08-29] MEDS: THIAMINE HCL 100 MG TABLET (FP) PO SCH (22:53)
[2021-08-29] MEDS: METHOCARBAMOL 500 MG TABLET PO PRN (22:53)
[2021-08-29] MEDS: QUEtiapine FUMARATE 200 MG TABLET PO SCH (22:53)
[2021-08-29] MEDS: MELATONIN 5 MG TABLETS PO SCH (22:53)
[2021-08-29] MEDS: LATANOPROST 0.005% OPHTH SOLN 2.5ML BOTTLE OS SCH (22:54)
[2021-08-30] MEDS ORDERED: chlordiazePOXIDE HCL 10 MG CAPSULE PO ONE (05:00)
[2021-08-30] MEDS: BRIMONIDINE TARTRATE 0.2% OPHTHALMIC 5 ML BOTTLE OS SCH (06:18)
[2021-08-30] MEDS: METHOCARBAMOL 500 MG TABLET PO PRN (08:33)
[2021-08-30 09:02] VITALS: BP 101/61; PULSE 85; TEMP 97.3
[2021-08-30] MEDS: DORZOLAMIDE 2% HCL OPHTHALMIC SOLUTION 10 ML BOTTLE OS SCH (10:25)
[2021-08-30] MEDS: TIMOLOL 0.5% OPHTHALMIC SOL 5 ML BOTTLE OS SCH (10:25)
[2021-08-30] MEDS: PRENATAL VITAMINS W/ FOLIC ACID TABLET (FP) PO SCH (10:25)
[2021-08-30] MEDS: NICOTINE 14 MG/24 HOURS TOPICAL PATCH TD SCH (10:25)
== END 2021-08-30 12:25 | disposition other institution (70) | DRG 773 ==
LOC: YASAS 12:25 → Y6N 15:21 → UNDODISIN 08-29 20:20
PROVIDERS: ADMIT Allergy & Immunology; ATTEND Allergy & Immunology
PROC: HZ2ZZZZ Detoxification Services for Substance Abuse Treatment (ICD-10-PCS; principal; 2021-08-25)
DX: F10.230 Alcohol dependence with withdrawal, uncomplicated (principal); F11.10 Opioid abuse, uncomplicated; F14.20 Cocaine dependence, uncomplicated; F12.20 Cannabis dependence, uncomplicated; F17.213 Nicotine dependence, cigarettes, with withdrawal; F19.282 Other psychoactive substance dependence with psychoactive substance-induced sleep disorder; F25.9 Schizoaffective disorder, unspecified; M54.12 Radiculopathy, cervical region; M51.26 Other intervertebral disc displacement, lumbar region; Z86.19 Personal history of other infectious and parasitic diseases; Z28.310 Unvaccinated for COVID-19; Z88.6 Allergy status to analgesic agent; Z56.0 Unemployment, unspecified; Z59.00 Homelessness unspecified
CPT/HCPCS: 36415; 80053; 85027; 86593; 86780; C9803-CS; U0003; U0005

== ENCOUNTER 2021-08-30 12:21 | Inpatient (IN) | payer OTHER ==
[2021-08-30] MEDS ORDERED: BENZOCAINE/MENTHOL (CHLORASEPTIC ) LOZENGE MM PRN (13:40)
[2021-08-30] MEDS ORDERED: ACETAMINOPHEN 325 MG TABLET (FP) PO PRN (13:40)
[2021-08-30] MEDS ORDERED: MAGNESIUM CITRATE 300 ML BOTTLE PO PRN (13:40)
[2021-08-30] MEDS ORDERED: MAG HYDROX/AL HYDROX/SIMETH 30 ML UNIT-DOSE CUP PO PRN (13:40)
[2021-08-30] MEDS ORDERED: NICOTINE 10 MG CARTRIDGE (INHALER) IH PRN (13:40)
[2021-08-30] MEDS ORDERED: MAGNESIUM HYDROX 2400MG/30ML ORAL SUSPENSION 30 ML CUP PO PRN (13:40)
[2021-08-30] MEDS ORDERED: guaiFENesin 200 MG/10 ML 10 ML UNIT-DOSE CUPS PO PRN (13:40)
[2021-08-30] MEDS ORDERED: hydrOXYzine PAMOATE 25 MG CAPSULE (FP) PO PRN (13:40)
[2021-08-30] MEDS ORDERED: LOPERAMIDE HCL 2 MG CAPSULE PO PRN (13:40)
[2021-08-30] MEDS ORDERED: P-EPHED 60MG/TRIPROLIDI 2.5MG TABLET PO PRN (13:40)
[2021-08-30] MEDS: MELATONIN 5 MG TABLETS PO SCH (21:24)
[2021-08-30] MEDS: THIAMINE HCL 100 MG TABLET (FP) PO SCH (21:24)
[2021-08-30] MEDS: LATANOPROST 0.005% OPHTH SOLN 2.5ML BOTTLE OS SCH (21:25)
[2021-08-30] MEDS: BRIMONIDINE TARTRATE 0.2% OPHTHALMIC 5 ML BOTTLE OS SCH (21:25)
[2021-08-30] MEDS: DORZOLAMIDE 2% HCL OPHTHALMIC SOLUTION 10 ML BOTTLE OS SCH (21:26)
[2021-08-30] MEDS: TIMOLOL 0.5% OPHTHALMIC SOL 5 ML BOTTLE OS SCH (21:26)
[2021-08-30] MEDS: FLUTICASONE PROP 0.05% 16 GM NASAL SPRAY NS SCH (21:27)
[2021-08-30] MEDS: QUEtiapine FUMARATE 200 MG TABLET PO SCH (21:27)
[2021-08-30] MEDS: IBUPROFEN 400 MG TABLET (FP) PO PRN (21:29)
[2021-08-31] MEDS: BRIMONIDINE TARTRATE 0.2% OPHTHALMIC 5 ML BOTTLE OS SCH ×3 (06:22→21:06)
[2021-08-31] MEDS: PRENATAL VITAMINS W/ FOLIC ACID TABLET (FP) PO SCH (10:17)
[2021-08-31] MEDS: NICOTINE 7 MG/24 HOURS TOPICAL PATCH TD SCH (10:17)
[2021-08-31] MEDS: DORZOLAMIDE 2% HCL OPHTHALMIC SOLUTION 10 ML BOTTLE OS SCH ×2 (10:18→21:07)
[2021-08-31] MEDS: TIMOLOL 0.5% OPHTHALMIC SOL 5 ML BOTTLE OS SCH ×2 (10:18→21:06)
[2021-08-31] MEDS: FLUTICASONE PROP 0.05% 16 GM NASAL SPRAY NS SCH ×2 (10:19→21:06)
[2021-08-31] MEDS: IBUPROFEN 400 MG TABLET (FP) PO PRN (10:21)
[2021-08-31] MEDS: QUEtiapine FUMARATE 100 MG TABLET (FP) PO SCH (12:03)
[2021-08-31 16:40] LABS: HIV INTERPRETATION NEGATIVE (NEGATIVE)
[2021-08-31] MEDS: QUEtiapine FUMARATE 200 MG TABLET PO SCH (21:07)
[2021-08-31] MEDS: THIAMINE HCL 100 MG TABLET (FP) PO SCH (21:07)
[2021-08-31] MEDS: LATANOPROST 0.005% OPHTH SOLN 2.5ML BOTTLE OS SCH (21:07)
[2021-08-31] MEDS: MELATONIN 5 MG TABLETS PO SCH (21:08)
[2021-09-01] MEDS: BRIMONIDINE TARTRATE 0.2% OPHTHALMIC 5 ML BOTTLE OS SCH ×3 (06:38→21:56)
[2021-09-01] MEDS: NICOTINE 7 MG/24 HOURS TOPICAL PATCH TD SCH (10:03)
[2021-09-01] MEDS: PRENATAL VITAMINS W/ FOLIC ACID TABLET (FP) PO SCH (10:03)
[2021-09-01] MEDS: FLUTICASONE PROP 0.05% 16 GM NASAL SPRAY NS SCH ×2 (10:04→22:01)
[2021-09-01] MEDS: QUEtiapine FUMARATE 100 MG TABLET (FP) PO SCH (10:04)
[2021-09-01] MEDS: DORZOLAMIDE 2% HCL OPHTHALMIC SOLUTION 10 ML BOTTLE OS SCH ×2 (10:05→21:56)
[2021-09-01] MEDS: TIMOLOL 0.5% OPHTHALMIC SOL 5 ML BOTTLE OS SCH ×2 (10:05→22:01)
[2021-09-01] MEDS: MELATONIN 5 MG TABLETS PO SCH (21:56)
[2021-09-01] MEDS: THIAMINE HCL 100 MG TABLET (FP) PO SCH (21:56)
[2021-09-01] MEDS: QUEtiapine FUMARATE 200 MG TABLET PO SCH (21:58)
[2021-09-01] MEDS: IBUPROFEN 400 MG TABLET (FP) PO PRN (21:59)
[2021-09-01] MEDS: LATANOPROST 0.005% OPHTH SOLN 2.5ML BOTTLE OS SCH (22:02)
[2021-09-02] MEDS: BRIMONIDINE TARTRATE 0.2% OPHTHALMIC 5 ML BOTTLE OS SCH ×3 (06:47→21:33)
[2021-09-02] MEDS: NICOTINE 7 MG/24 HOURS TOPICAL PATCH TD SCH (09:41)
[2021-09-02] MEDS: QUEtiapine FUMARATE 100 MG TABLET (FP) PO SCH (09:41)
[2021-09-02] MEDS: PRENATAL VITAMINS W/ FOLIC ACID TABLET (FP) PO SCH (09:41)
[2021-09-02] MEDS: FLUTICASONE PROP 0.05% 16 GM NASAL SPRAY NS SCH ×2 (09:41→21:34)
[2021-09-02] MEDS: TIMOLOL 0.5% OPHTHALMIC SOL 5 ML BOTTLE OS SCH ×2 (09:42→21:34)
[2021-09-02] MEDS: DORZOLAMIDE 2% HCL OPHTHALMIC SOLUTION 10 ML BOTTLE OS SCH ×2 (09:43→21:34)
[2021-09-02] MEDS: MELATONIN 5 MG TABLETS PO SCH (21:34)
[2021-09-02] MEDS: THIAMINE HCL 100 MG TABLET (FP) PO SCH (21:34)
[2021-09-02] MEDS: LATANOPROST 0.005% OPHTH SOLN 2.5ML BOTTLE OS SCH (21:35)
[2021-09-02] MEDS: IBUPROFEN 400 MG TABLET (FP) PO PRN (21:36)
[2021-09-02] MEDS: QUEtiapine FUMARATE 200 MG TABLET PO SCH (21:37)
[2021-09-03 07:12] VITALS: BP 103/73; PULSE 85; TEMP 97.4
[2021-09-03] MEDS: BRIMONIDINE TARTRATE 0.2% OPHTHALMIC 5 ML BOTTLE OS SCH (07:42)
[2021-09-03] MEDS: PRENATAL VITAMINS W/ FOLIC ACID TABLET (FP) PO SCH (09:09)
[2021-09-03] MEDS: FLUTICASONE PROP 0.05% 16 GM NASAL SPRAY NS SCH (09:09)
[2021-09-03] MEDS: NICOTINE 7 MG/24 HOURS TOPICAL PATCH TD SCH (09:09)
[2021-09-03] MEDS: QUEtiapine FUMARATE 100 MG TABLET (FP) PO SCH (09:09)
[2021-09-03] MEDS: DORZOLAMIDE 2% HCL OPHTHALMIC SOLUTION 10 ML BOTTLE OS SCH (09:10)
[2021-09-03] MEDS: TIMOLOL 0.5% OPHTHALMIC SOL 5 ML BOTTLE OS SCH (09:10)
[2021-09-03] MEDS: IBUPROFEN 400 MG TABLET (FP) PO PRN (09:11)
[2021-09-03 10:08] LABS: SARS-CoV-2 NAA Not Detected (Not Detected)
== END 2021-09-03 10:40 | disposition home or self-care (01) | DRG 772 ==
LOC: YASAS 12:21 → Y3E 12:22
PROVIDERS: ADMIT Allergy & Immunology; ATTEND Allergy & Immunology
PROC: HZ42ZZZ Group Counseling for Substance Abuse Treatment, Cognitive-Behavioral (ICD-10-PCS; principal; 2021-08-30)
DX: F10.20 Alcohol dependence, uncomplicated (principal); F14.20 Cocaine dependence, uncomplicated; F12.20 Cannabis dependence, uncomplicated; F17.210 Nicotine dependence, cigarettes, uncomplicated; F19.282 Other psychoactive substance dependence with psychoactive substance-induced sleep disorder; F19.24 Other psychoactive substance dependence with psychoactive substance-induced mood disorder; F25.9 Schizoaffective disorder, unspecified; H40.9 Unspecified glaucoma; G40.909 Epilepsy, unspecified, not intractable, without status epilepticus; M51.26 Other intervertebral disc displacement, lumbar region; Z88.6 Allergy status to analgesic agent
CPT/HCPCS: 36415; 87389; C9803-CS; U0003; U0005